=== PATIENT | female | born 1985 | race Caucasian/White ===

== ENCOUNTER 2024-09-09 14:04 | Emergency (ER) | payer BC, SELFPAY ==
[2024-09-09 14:13] VITALS: BP 125/81
--- NOTE | 2024-09-09 15:20 | ED.GENMED ---
History of Present Illness
General
Chief Complaint: Crisis Evaluation
Source: patient and spouse
Time Seen by Provider: 09/09/24 14:55
History of Present Illness
History of Present Illness:
39yoF with a history of bipolar disorder and ADD presenting with her for psychiatric evaluation. A majority of history is provided by the at bedside. Patient had a tummy tuck about 6-7 weeks ago. She was prescribed pain medications
postoperatively and states she started to go down hill after that. She is acting erratically and is very hostile. states she was waving around a knife 2 weeks ago. tried to 302 her at that time which was apparently denied by
the [facility]. She was walking out into traffic yesterday in the middle of [place]. currently has a PFA against her which was extended for [address] Mobile crisis came to see patient today and advised her to go to the ED
to initiate inpatient treatment. Patient denies any suicidal ideations. Her last psychiatric admission was about 1 year ago. She has not had regular outpatient follow up since then. She currently takes amphetamine salts, trazodone, and Flexeril.
Phy Exam
General Physical Exam
General Presentation: well appearing
General age: appears stated age
General Skin: warm and dry
General Habitus: normal
General Mental: alert
ENT Exam
ENT Exam: normocephalic
Pulmonary Exam
Pulmonary Exam: no respiratory distress
Gastrointestinal Exam
Gastrointestinal Exam: non tender, soft and other (Surgical incision is healing and c/d/i)
[place] Coma Scale
Eye Opening: Spontaneous
Verbal Response: Oriented
Motor Response: Obeys Commands
GCS Total Score: 15
Psychiatric Exam
Psychiatric Exam: agitated, labile and other (Affect is labile. Patient with erratic thought process. She stated she was 'Putin's urvashi' at one point. No SI.)
Course
Orders/Labs/Results
Orders:
Orders
09/09/24 14:22
1:1 Observation - Suicide/ Violent Behavior As Directed
09/09/24 15:19
Crisis Consult Urgent
Reason for Consult: Eval, psychosis, hx of bipolar disorder
Test Result ONCE
09/09/24 15:34
Test Result ONCE
09/09/24 15:36
Fentanyl, Urine Urgent
, Urine Qualitative Screen [HCG, Urine Qualitative Screen] Urgent
Date Specimen was Collected: 09/09/24
Time Specimen was Collected: 15:33
Urine Drug Abuse Screen Urgent
Date Specimen was Collected: 09/09/24
Time Specimen was Collected: 15:33
09/09/24 18:50
Remove Patch [Remove Nicotine Patch] 21 patch REMOVE HS
09/09/24 22:00
Remove Patch [Remove Nicotine Patch] 21 patch REMOVE HS
09/10/24 08:00
Nicotine [Nicoderm Transdermal] 21 mg TRANSDERM DAILY
Abnormal Lab Results
09/09/24
15:36
Ur Amphetamines Screen Positive H
(Negative)
U Benzodiazepines Scrn Positive H
(Negative)
U Marijuana (THC) Screen Positive H
(Negative)
Vital Signs
Initial and Last Documented VS:
Initial Vital Signs
Temp Pulse Resp BP Pulse Ox
98.3 F 120 16 125/81 98
09/09/24 14:13 09/09/24 14:13 09/09/24 14:13 09/09/24 14:13 09/09/24 14:13
Last Documented Vital Signs
Temp Pulse Resp BP Pulse Ox
97.6 F 85 16 102/58 100
09/09/24 16:33 09/09/24 16:33 09/09/24 14:13 09/09/24 16:33 09/09/24 16:33
MDM/Problems Addressed
Differential Diagnosis Includes:
39yoF here for psychiatric evaluation. states she is acting erratically and was walking into traffic yesterday. Sent to the ED by mobile [facility]. Hx of bipolar disorder. No SI. VSS. Affect is labile on exam and she was initially very
irritable and refusing to answer questions. She became more cooperative as the assessment went on.
Initial ED plan: Check UDS, urine test, and crisis consult ordered.
*Critical Care Note
Total Time (30-74mins, 75-104mins- exclusive of procedures): Not Applicable
Update Note
Update Note:
Patient is medically cleared for inpatient psychiatric treatment. She was evaluated by crisis and she agreed to sign in voluntarily. Crisis able to get patient a bed at [facility]. Patient transported directly to [facility]. She left in stable
condition.
ED Attending Note
-
Portions of this chart may have been created with voice recognition software.� Occasional wrong word or��sound alike� substitutions may have occurred due to the inherent limitations of voice recognition software.
Discharge Plan
Departure
Patient Disposition: Psych Facility
Date of Disposition: 09/09/24
Time of Disposition: 21:09
Discharge Problem:
Psychosis
Referrals:
UNKNOWN,NO INTERVIEW [Family Provider] -
Interventions
Interventions:
*Risk Screen - Suicide Last Done: 09/09/24 14:13
*Neglect/Abuse Screening Last Done: 09/09/24 14:13
*Nursing Disposition Last Done: 09/09/24 23:21
ED-Psychological Assessment Last Done: 09/09/24 15:04
Discharge Date and Time
Discharge Date/Time: 09/09/24 23:23
Print Language: BULGARIAN
[2024-09-09 15:57] LABS: HCG, Urine Qualitative Screen Negative
[2024-09-09 16:05] LABS: Amphetamines Positive (Negative); Barbiturates Negative (Negative); Benzodiazepines Positive (Negative); Buprenorphine Negative (Negative); Cocaine Negative (Negative); Marijuana Positive (Negative); Methadone Negative (Negative); Methamphetamines Negative (Negative); Opiates Negative (Negative); Phencyclidine Negative (Negative); Tricyclic Antidepressants Negative (Negative)
[2024-09-09 16:25] LABS: Fentanyl, Urine Negative (Negative)
[2024-09-09 16:33] VITALS: BP 102/58
== END 2024-09-09 23:23 ==
LOC: EMR 14:04
PROVIDERS: Physician Assistant; EMERGENCY PHYSICIAN Emergency Medicine
DX: F29 Unspecified psychosis not due to a substance or known physiological condition (principal); F31.9 Bipolar disorder, unspecified
CPT/HCPCS: 99283; 80306; 80307; 81025